=== PATIENT | female | born 1980 | race Two or more races ===

== ENCOUNTER 2024-02-18 10:26 | Emergency (ER) | payer MEDICAID, SELFPAY ==
--- NOTE | 2024-02-18 10:30 | EKG_ITS ---
[facility] Test Date: 2024-02-18 Pat Name: CARRIE SWIFT Department: Room: - Gender: Female Tire Layer: : 1980 Requested By: Louis Sanchez Order Number: [id number] Reading MD: Louis Sanchez Measurements Intervals Crane Rate: 85 P: 49 AR: 149 QRS: 24 QRSD: 65 T: 30 QT: 345 QTc: 412 Interpretive Statements SINUS RHYTHM No previous ECG available for comparison /[id number]/[email or web address]/[id number]
[2024-02-18 10:51] VITALS: BP 175/99; PULSE 95; RESP 20; TEMP 37.2; O2SAT 100; BMI 25.4
--- NOTE | 2024-02-18 12:49 | XR_ITS ---
Examination: PA chest single view TECHNIQUE: Upright PA chest single view Exam date and time: February 18, 2024 1254 hours INDICATIONS: Shortness of breath coughing beginning 2 days ago. FINDINGS: Normal heart size Lungs are clear. The osseous structures are intact IMPRESSION: No active disease
[2024-02-18 12:54] VITALS: BP 180/105; PULSE 95; RESP 18; TEMP 37.2; O2SAT 98
[2024-02-18] MEDS: predniSONE 20 MG TABLET 60 MG PO (13:11)
--- NOTE | 2024-02-18 13:12 | PD.EDSOB ---
ED SOB =RME/HPI General Chief Complaint: Shortness of Breath/Dyspnea Stated Complaint: sob, upper mid chest pain Arrival date/time: 02/18/24 10:26 RME / HPI RME / HPI Narrative: This section includes all my notes and documentations, including HPI, PE, and ED course.? Louis May MD HPI: 43 year old female with a history of rheumatoid arthritis and frequent bronchitis presents to the ED with a 4-day history of progressive shortness of breath. And worsening cough, productive cough, and purulent sputum. Patient mentioned she had been told in the past she had scarring in her lungs. She denies any associated fever or other respiratory symptoms. There are no known relieving or aggravating factors. No other complaints. ROS: All negative except as documented in HPI. Physical Exam: General:? Alert and oriented.? In mild respiratory distress. Eyes:? Conjunctivae and lids clear.? ENT:? No nasal congestion.? Pharynx normal. TM normal bilaterally. Neck:? Supple.? Heart:? RRR.? Lungs: Mild respiratory distress.? Mildly decreased air movement with rhonchi. Abdomen:? Soft and nontender.?? Legs:? No clubbing, cyanosis, edema.? Skin:? Warm and dry.?? Neuro:? Alert and oriented X 3.?? I reviewed all diagnostic test results. My interpretation of the EKG is?sinus rhythm with no acute ST?T changes. My interpretation of the chest x-ray is increased bronchial markings. Blood tests unremarkable, including negative troponin. COVID/influenza negative. At this point, diagnoses include?bronchitis. Treatment here included?Zithromax and prednisone and DuoNeb. Significant improvement noted. Recommended a trial of outpatient treatment. Based on my best medical judgment, made decision no further evaluation or treatment indicated at this time.? Patient understands and agrees to the discharge instructions customized and printed, see below. Discharge instructions from Dr. May: --No physical exertion for 3 days to help rest the lungs. ?-No smoking or exposure to smoking or pets or dust or cold or humidity. --Zithromax to kill the germs causing the bronchitis. --Prednisone to help decrease the swelling in the airways. --Albuterol 2 puffs every 4-6 hours for 3 days to help keep the airways open. Then as needed for cough or shortness of breath. --See a private doctor next week for recheck. --Seek immediate medical care with worsening or with any concerns. Instrucciones de eliseo del Dr. May: --No hacer shashi?n esfuerzo f?sico zenia 3 d?as para ayudar a que los pulmones descansen. --No fumar ni exponerse al humo del tabaco, a las mascotas, al polvo, al fr?o o a la humedad. --Zithromax para matar los g?rmenes que causan la bronquitis. --Prednisona para ayudar a disminuir la hinchaz?n de las v?as respiratorias. --Albuterol 2 inhalaciones cada 4-6 horas zenia 3 d?as para ayudar a mantener abiertas las v?as respiratorias. Luego, seg?n sea necesario, en denita de tos o falta de aire. --Consultar a un m?dico privado la pr?xima semana para un nuevo control. --Buscar atenci?n m?dica inmediata si la enfermedad empeora o si hay alguna inquietud. Louis May MD Related Data Home Medications ?Medication ?Instructions ?Recorded ?Confirmed abatacept 125 mg/mL subcutaneous 125 mg SQ QWEEK Arthritis ##0 07/27/13 06/02/19 syringe (Orencia) methotrexate sodium 5 mg tablet 2.5 mg PO Q7D #3 tabs 07/27/13 06/02/19 (Trexall) folic acid 1 mg tablet 3 mg PO QDAY #0 tabs 04/29/15 06/02/19 albuterol sulfate 2.5 mg/3 mL 3 ml inhalation QDAY PRN sob 06/02/19 06/02/19 (0.083 %) solution for nebulization losartan 100 mg tablet 100 mg PO QDAY 06/02/19 06/02/19 Previous Rx's ?Medication ?Instructions ?Recorded acetaminophen 300 mg-codeine 15 mg 1 tab PO Q12H PRN pain #14 tabs 06/02/19 tablet cyclobenzaprine 10 mg tablet 10 mg PO BID PRN muscle spasm #20 04/06/23 tabs ibuprofen 600 mg tablet 600 mg PO TID PRN pain #30 tabs 04/06/23 albuterol sulfate 90 mcg/actuation 2 inh inhalation QID PRN shortness 02/18/24 aerosol inhaler of breath or wheezing #8.5 grams azithromycin 500 mg tablet 500 mg PO QDAY 3 days #3 tabs 02/18/24 (Zithromax TRI-MORENO) prednisone 20 mg tablet 40 mg PO BID 3 days #12 tabs 02/18/24 Allergies Allergy/AdvReac Type Severity Reaction Status Date / Time No Known Allergies Allergy Verified 02/18/24 10:29 Review of Systems Review of Systems Systems Reviewed: All systems reviewed, normal except as documented Past Medical History Past Medical History CARDIAC: Positive Hypertension; Negative Cardiac Disorders or Congestive Heart Failure RESPIRATORY: Negative Chronic Obstructive Pulmonary Disease (COPD) or Asthma GENITOURINARY: Negative Renal Disease MUSCULOSKELETAL: Positive Rheumatoid Arthritis ENDOCRINE: Negative Diabetes Mellitus Type 1 or Diabetes Mellitus Type 2 HEMATOLOGIC: Negative Sickle Cell Disease Social History SMOKING STATUS: Never smoker ED Exam Narrative Physical exam: As noted in HPI Course Quality Measures none Orders Category Date Time Status Bedside COVID-19 Antigen Test NOW Care 02/18/24 12:49 Active Bedside Influenza A&B Antigen Test NOW Care 02/18/24 12:49 Completed EKG (ED ONLY) *Do not use* NOW Care 02/18/24 10:30 Completed EKG (ED Only) Stat Exams 02/18/24 10:30 Draft XR chest 1V portable Stat Exams 02/18/24 12:49 Completed CBC Stat Lab 02/18/24 13:58 Completed CMP [Comprehensive Metabolic Panel] Stat Lab 02/18/24 13:58 Completed Magnesium Stat Lab 02/18/24 13:58 Completed Troponin I Stat Lab 02/18/24 13:58 Completed Albuterol/Ipratr Rt Carlie [Duoneb Rt Carlie] Med 02/18/24 12:48 Discontinued 3 ml INH X1 ONE Azithromycin Po [Zithromax PO] Med 02/18/24 14:43 Discontinued 500 mg PO X1 ONE predniSONE Med 02/18/24 12:48 Discontinued 60 mg PO X1 ONE Vital Signs Vital signs: Vital Signs Temperature 99.0 F 02/18/24 10:51 Pulse Rate 95 02/18/24 10:51 Respiratory Rate 20 02/18/24 10:51 Blood Pressure 175/99 H 02/18/24 10:51 Pulse Oximetry (%) 100 02/18/24 10:51 Oxygen Delivery Method Room Air 02/18/24 10:51 Pulse ox is 100% on room air which is adequate. Shortness of Breath / Dyspnea MDM Narrative MDM Narrative:: Iris Mcgee am scribing for and in the presence of Dr. May. Patient data External records reviewed:: [facility] previous records (I reviewed ED visit on 06/02/2023 ) Clinical information provided by:: patient Social determinants that could affect healthcare access:: none Patient has the following chronic illnesses:: rheumatoid arthritis and frequent bronchitis How is presenting disease/condition affected by chronic disease/condition?: exacerbated by Evaluation data The following diagnostics were reviewed and interpreted by me:: lab results, radiology exam(s) and EKG tracing(s) (My interpretation of the EKG is: Sinus rhythm with nonspecific ST-T changes. Louis May MD) Lab and/or radiology exams considered but not ordered:: None Interpretation Summary: Bronchitis Medications / Prescriptions Medications or Prescriptions considered but not ordered:: None Medication administrations:: Medication Administration History Discontinued Medications Albuterol/Ipratropium (Albuterol/Ipratropium (Duoneb) Rt Carlie 3 Ml Nebu) 3 ml INH X1 ONE Stop: 02/18/24 12:49 Last Admin: 02/18/24 13:35 Dose: 3 ml Documented By: SERGIO Azithromycin (Azithromycin 250 Mg Tablet) 500 mg PO X1 ONE Stop: 02/18/24 14:44 Last Admin: 02/18/24 14:58 Dose: 500 mg Documented By: PRANEETH Prednisone (Prednisone 20 Mg Tablet) 60 mg PO X1 ONE Stop: 02/18/24 12:49 Last Admin: 02/18/24 13:11 Dose: 60 mg Documented By: PRANEETH Zithromax and prednisone and DuoNeb Consultations Consultation(s) initiated? (list below): No Diagnosis Shortness of Breath Differential Diagnosis: acute exacerbation of chronic obstructive airways disease, congestive heart failure, community acquired pneumonia, asthma with exacerbation and other (Bronchitis, DE) Most likely diagnosis given after review of the tests above:: Bronchitis Admission Indicated Admission indicated?: not indicated Explain why admission is indicated or not indicated:: Admission criteria not met Admission Request Was there a request for admission?: No Disposition Plan Disposition Plan: Discharge Discharge Attestation Discharge Attestation: The patient and all family members were given an opportunity to ask questions and understood the discharge instructions. Discharge instructions specifically effects, indications for sooner follow up or return to the emergency department, and the expected course of current diagnosis. Patient condition: Stable Discharge Plan Plan Patient Disposition: HOME (Self Care) Prescriptions/Referrals Prescriptions/Med Rec: New prednisone 20 mg tablet 40 mg PO BID 3 Days Qty: 12 0RF Taper: Prednisone Taper 20 mg DAILY for 2 Days and 0 Hour 10 mg DAILY for 2 Days and 0 Hour 5 mg DAILY for 7 Days and 0 Hour albuterol sulfate 90 mcg/actuation HFA aerosol inhaler 2 inh inhalation QID PRN (Reason: shortness of breath or wheezing) Qty: 8.5 0RF azithromycin [Zithromax TRI-MORENO] 500 mg tablet 500 mg PO QDAY 3 Days Qty: 3 0RF No Action Trexall 5 MG tablet 2.5 mg PO Q7D Qty: 3 Rx Instructions: fridays. Orencia 125 MG/1 ML syringe 125 mg SQ QWEEK Qty: 0 Rx Instructions: sundays. folic acid 1 MG tablet 3 mg PO QDAY Qty: 0 albuterol sulfate 2.5 mg /3 mL (0.083 %) Solution For Nebulization 3 ml inhalation QDAY PRN (Reason: sob) losartan 100 mg Tablet 100 mg PO QDAY acetaminophen-codeine 300-15 mg tablet 1 tab PO Q12H PRN (Reason: pain) Qty: 14 0RF cyclobenzaprine 10 mg tablet 10 mg PO BID PRN (Reason: muscle spasm) Qty: 20 0RF ibuprofen 600 mg tablet 600 mg PO TID PRN (Reason: pain) Qty: 30 0RF Referrals: Michelle Woodard MD [Primary Care Provider] - In 1 week Problem List Clinical Impression: Bronchitis Patient/Caregiver Discharge Instructions Discharge Activity: activity as tolerated Education Materials: ED Bronchitis with Wheezing (Adult) Additional Instructions: Discharge instructions from Dr. May: --No physical exertion for 3 days to help rest the lungs. ?-No smoking or exposure to smoking or pets or dust or cold or humidity. --Zithromax to kill the germs causing the bronchitis. --Prednisone to help decrease the swelling in the airways. --Albuterol 2 puffs every 4-6 hours for 3 days to help keep the airways open. Then as needed for cough or shortness of breath. --See a private doctor next week for recheck. --Seek immediate medical care with worsening or with any concerns. Instrucciones de eliseo del Dr. May: --No hacer shashi?n esfuerzo f?sico zenia 3 d?as para ayudar a que los pulmones descansen. --No fumar ni exponerse al humo del tabaco, a las mascotas, al polvo, al fr?o o a la humedad. --Zithromax para matar los g?rmenes que causan la bronquitis. --Prednisona para ayudar a disminuir la hinchaz?n de las v?as respiratorias. --Albuterol 2 inhalaciones cada 4-6 horas zenia 3 d?as para ayudar a mantener abiertas las v?as respiratorias. Luego, seg?n sea necesario, en denita de tos o falta de aire. --Consultar a un m?dico privado la pr?xima semana para un nuevo control. --Buscar atenci?n m?dica inmediata si la enfermedad empeora o si hay alguna inquietud. Print Language: Armenian Stand Alone Forms: Samantha Award Info., Patient Portal Info Letter
[2024-02-18] MEDS: ALBUTEROL/IPRATROPIUM (Duoneb) RT SOL 3 ML NEBU INH (13:35)
[2024-02-18 13:37] VITALS: PULSE 82; RESP 18; O2SAT 99
[2024-02-18 14:21] LABS: Basophils % (Auto) 0 % (0-2.5); Eosinophils % (Auto) 0 % (0-10); Hematocrit 34.1 % (36.0-46.0); Hemoglobin 12.1 g/dL (12.0-16.0); Immature Granulocytes % (Auto) 1 % (0-0); Immature Granulocytes Auto 0.03 Thou/mm3 (0.00-0.00); Lymphocytes # (Auto) 1.9 Thou/mm3 (1.0-4.8); Lymphocytes % (Auto) 32 % (10-50); Mean Corpuscular HGB Conc 35.5 g/dl (31.0-37.0); Mean Corpuscular Hemoglobin 30.7 pg (25.0-35.0); Mean Corpuscular Volume 87 fL (80-100); Monocytes # (Auto) 0.5 Thou/mm3 (0.0-0.8); Monocytes % (Auto) 8 % (0-12); Neutrophils # (Auto) 3.4 Thou/mm3 (1.8-7.7); Neutrophils % (Auto) 59 % (37-80); Nucleated Red Blood Cell % 0 /100 WBC (0); Platelet Count 185 Thou/mm3 (140-440); RDW Standard Deviation 39.9 fL (36.4-46.3); Red Blood Count 3.94 Miln/mm3 (4.00-5.20); White Blood Count 5.8 Thou/mm3 (3.6-11.0)
[2024-02-18 14:41] LABS: Troponin I < 0.002 ng/mL (0.0-0.045)
[2024-02-18 14:44] LABS: Alanine Aminotransferase 7 U/L (10-49); Albumin, Serum 4.5 gm/dL (3.5-5.0); Albumin/Globulin Ratio 1.2 (1.2-2.2); Alkaline Phosphatase 84 U/L (46-116); Anion Gap 12 (7-16); Aspartate Amino Transferase 19 U/L (0-34); BUN/Creatinine Ratio 14 Ratio (12-20); Bilirubin,Total 0.5 mg/dL (0.3-1.2); Blood Urea Nitrogen 13 mg/dL (9-23); Calcium 9.6 mg/dL (8.3-10.6); Calcium (Corrected) 9.6 mg/dL (8.5-10.1); Carbon Dioxide 18.5 mMol/L (20.0-31.0); Chloride 108 mMol/L (98-107); Creatinine (Component) 0.9 mg/dL (0.6-1.3); Estimated Creatinine Clearance 65.5 mL/min (>60); Globulin 3.8 gm/dL (2.3-3.5); Glucose 85 mg/dL (74-106); Magnesium 1.8 mg/dL (1.6-2.6); Osmolality,Calculated 274 (275-295); Potassium 3.4 mMol/L (3.4-5.1); Sodium 138 mMol/L (136-145); Total Protein 8.3 gm/dL (5.7-8.2); eGFR > 60 See Note
[2024-02-18] MEDS: AZITHROMYCIN 250 MG TABLET 500 MG PO (14:58)
== END 2024-02-18 16:02 | disposition home or self-care (01) ==
PROVIDERS: Emergency Provider Emergency Medicine; PCP Obstetrics & Gynecology
DX: J40 Bronchitis, not specified as acute or chronic (principal); M06.9 Rheumatoid arthritis, unspecified
CPT/HCPCS: 36415; 71045; 80053; 83735; 84484; 85025; 87400; 87811; 93005; 94640; 99283; A9270; J7512